=== PATIENT | female | born 2000 | race American Indian/Alaskan Native ===

== ENCOUNTER 2020-02-25 11:23 | Outpatient (CLI) | payer MEDICAID ==
[2020-02-25 12:00] VITALS: BP 135/60
[2020-02-25 12:34] LABS: Bacteria,Urine 1+ /HPF (Negative); Bilirubin,Urine NEG (Negative); Blood,Urine NEG (Negative); Color,Urine Yellow (Yellow); Mucus,Urine FEW /HPF; Protein,Urine <15 mg/dL mg/dL (Negative); Urobilinogen,Urine < 2.0 mg/dL (<2.0)
[2020-02-25] MEDS ORDERED: LACTATED RINGERS 1,000 ML IV SCH (13:00)
[2020-02-25] MEDS ORDERED: ACETAMINOPHEN 500 MG TAB PO ONE (13:25)
== END 2020-02-25 14:10 | disposition home or self-care (01) ==
LOC: TRG 11:23 → APU 11:27 → TRG 14:10
PROVIDERS: ATTEND Obstetrics & Gynecology
DX: O26.893 Other specified pregnancy related conditions, third trimester (principal); R10.9 Unspecified abdominal pain; O47.03 False labor before 37 completed weeks of gestation, third trimester; Z3A.31 31 weeks gestation of pregnancy; Z87.891 Personal history of nicotine dependence
CPT/HCPCS: 59025; 81001; 96360; 96361; J7120

== ENCOUNTER 2020-03-13 03:53 | Emergency (ER) | payer MEDICAID ==
[2020-03-13 05:50] LABS: Basophils % (Auto) 0.4 % (0.0-1.8); Eosinophils # (Auto) 0.2 K/mm3 (0.0-0.4); Eosinophils % (Auto) 2.2 % (0.0-4.3); Hematocrit 33.6 % (30.3-42.9); Hemoglobin 11.1 gm/dl (10.1-14.3); Lymphocytes # (Auto) 2.1 K/mm3 (1.2-5.4); Lymphocytes % (Auto) 24.6 % (13.4-35.0); Mean Corpuscular HGB Conc 33 % (30-34); Mean Corpuscular Volume 88 fl (79-97); Monocytes # (Auto) 0.7 K/mm3 (0.0-0.8); Monocytes % (Auto) 8.8 % (0.0-7.3); Platelet Count 225 K/mm3 (140-440); Red Blood Count 3.82 M/mm3 (3.65-5.03); Red Cell Distribution Width 14.4 % (13.2-15.2)
[2020-03-13 06:06] LABS: Blood Urea Nitrogen 5 mg/dL (7-17); Hemolysis Index 0
[2020-03-13 06:08] LABS: BUN/Creatinine Ratio 8
[2020-03-13] MEDS ORDERED: ALBUTEROL 2.5 MG/3 ML NEBU IH ONE (06:12)
[2020-03-13] MEDS ORDERED: ACETAMINOPHEN 325 MG TAB PO ONE (06:12)
--- NOTE | 2020-03-13 06:16 | Emergency Department Report ---
ED Chest Pain HPI - General Chief Complaint: Chest Pain Stated Complaint: DIFF BREATHING/CHEST PAIN Time Seen by Provider: 03/13/20 06:03 Source: patient Mode of arrival: Ambulatory Limitations: No Limitations - History of Present Illness Initial Comments: This is a 19-year-old -[place] female who presents to the emergency department from home with a complaint of a 5-day history of some midsternal chest discomfort and shortness of breath. It is associated with an occasional dry cough. She denies any fever, back pain, nausea, vomiting, lower extremity edema. The patient also felt that she had some acid reflux so she took some Tums with some relief of the GERD, but this feels different than the chest discomfort. The chest discomfort is described as a pressure sensation. Usually her symptoms worsen when she is laying down and trying to go to sleep, but she currently says that it is improved while in the emergency department. Currently her chest discomfort is a 4 out of 10 in intensity. No known alleviating factors. Patient is currently 34 weeks and was cleared by L&D prior to arrival to the emergency department. She is followed by [facility]. She denies any abdominal pain, vaginal bleeding, pelvic pain. She is a former smoker but has not been smoking during this . She denies any family history of early ID or cardiac disease. No recent travel or sick contacts at home. Severity scale (0 -10): 5 - Related Data Previous Rx's Medication Instructions Recorded Last Taken Type Nitrofurantoin Pinal/M-Cryst 100 mg PO Q12HR #14 capsule 02/25/20 Unknown Rx [Macrobid CAP] Allergies Allergy/AdvReac Type Severity Reaction Status Date / Time No Known Allergies Allergy Verified 02/25/20 11:59 Heart Score - HEART Score History: Slightly suspicious EKG: Non-specific Age: < 45 Risk factors: No known risk factors Troponin: < normal limit HEART Score: 1 - Critical Actions Critical Actions: 0-3 pts:0.9-1.7%risk of adverse cardiac event.Candidate for discharge ED Review of Systems ROS: Stated complaint: DIFF BREATHING/CHEST PAIN Other details as noted in HPI Comment: All other systems reviewed and negative Constitutional: denies: chills, fever Eyes: denies: eye pain, vision change ENT: denies: ear pain, throat pain Respiratory: cough, shortness of breath Cardiovascular: chest pain. denies: palpitations, edema Gastrointestinal: denies: abdominal pain, vomiting Genitourinary: denies: dysuria, discharge Musculoskeletal: denies: back pain, arthralgia Skin: denies: rash, lesions Neurological: denies: headache, weakness ED Past Medical Hx - Past Medical History Previous Medical History?: Yes Hx Hypertension: No Hx Diabetes: No Hx Deep Vein Thrombosis: No Hx Renal Disease: No Hx Sickle Cell Disease: No Hx Seizures: No Hx Asthma: Yes (last attack as a child) Hx HIV: No - Surgical History Past Surgical History?: No - Social History Smoking Status: Never Smoker Substance Use Type: None - Medications Home Medications: Home Medications Medication Instructions Recorded Confirmed Last Taken Type Nitrofurantoin Pinal/M-Cryst 100 mg PO Q12HR #14 capsule 02/25/20 Unknown Rx [Macrobid CAP] ED Physical Exam - General Limitations: No Limitations - Other Other exam information: GENERAL: The patient is well-developed well-nourished. HENT: Normocephalic. Atraumatic. Patient has moist mucous membranes. EYES: Extraocular motions are intact. NECK: Supple. Trachea is midline. CHEST/LUNGS: Mild expiratory wheezing bilaterally. No cough heard during examination. No tachypnea or accessory muscle use. There is no respiratory distress noted. HEART/CARDIOVASCULAR: Regular. There is no tachycardia. There is no murmur. ABDOMEN: Abdomen is soft, nontender. Patient has normal bowel sounds. SKIN: Skin is warm and dry. NEURO: The patient is awake, alert, and oriented. The patient is cooperative. The patient has no focal neurologic deficits. Normal speech. MUSCULOSKELETAL: There is no tenderness or deformity. ED Course Vital Signs 03/13/20 03/13/20 03/13/20 04:07 05:55 05:58 Temperature 98.1 F 98.4 F Pulse Rate 84 70 Respiratory 22 20 20 Rate Blood Pressure 140/71 Blood Pressure 139/58 [Right] O2 Sat by Pulse 96 97 97 Oximetry 03/13/20 03/13/20 06:43 09:17 Temperature Pulse Rate 66 Respiratory 20 16 Rate Blood Pressure Blood Pressure 149/69 [Right] O2 Sat by Pulse 100 Oximetry RABIA score - Rabia Score Age > 65: (0) No Aspirin use within the Past 7 Days: (0) No 3 or more CAD Risk Factors: (0) No 2 or more Angina events in past 24 hrs: (1) Yes Known CAD with more than 50% Stenosis: (0) No Elevated Cardiac Markers: (0) No ST Deviation Greater than 0.5mm: (0) No RABIA Score: 1 ED Medical Decision Making - Lab Data Result diagrams: 03/13/20 05:13 03/13/20 05:13 - EKG Data -: EKG Interpreted by Me EKG shows normal: sinus rhythm, axis, intervals, QRS complexes, ST-T waves (T wave inversions to the inferior, lateral and anterior leads) Rate: normal - EKG Data When compared to previous EKG there are: previous EKG unavailable Interpretation: other (Sinus rhythm, normal axis, normal intervals, T wave inversions to the anterior, inferior, and lateral leads. No ST elevation ID) - Radiology Data Radiology results: image reviewed interpreted by me: Chest x-ray does not show any acute process. There are no pleural effusions, obvious pneumonia and there is no pneumothorax. No significant cardiomegaly. - Medical Decision Making This patient presents to the emergency department with complaint of a 5-day history of some shortness of breath and chest tightness. At the time of my examination she denies any chest tightness or discomfort and the shortness of breath has greatly improved. EKG did not have any morphology consistent with ST elevation ID or any dysrhythmia. Chest x-ray did not show any pneumonia, pneumothorax, pleural effusions, or any other acute process. Patient's labs have been unremarkable including CBC, metabolic panel and negative troponins x2. Her vital signs have been reassuring throughout her ED course including being afebrile. She was given an albuterol breathing treatment with improvement. The patient is very low on the heart and RABIA score. Other than her , the patient does not have any other risk factors consistent with thromboembolic disease. She does not have any significant or sustained tachycardia, any hypoxia, and does not appear to have any respiratory or acute distress. Patient does not have any unilateral or bilateral lower extremity swelling. She will be discharged home to follow-up with primary care and TRAVELING SALES REPRESENTATIVE. She will return to the emergency department with any worsening of her symptoms or with any acute distress. Critical Care Time: No Critical care attestation.: If time is entered above; I have spent that time in minutes in the direct care of this critically ill patient, excluding procedure time. ED Disposition Clinical Impression: Chest tightness Qualifiers: Weeks of gestation: unspecified Qualified Code(s): Z34.90 - Encounter for nagy pervision of normal , unspecified, unspecified trimester Dyspnea Qualifiers: Dyspnea type: shortness of breath Qualified Code(s): R06.02 - Shortness of breath; R06.00 - Dyspnea, unspecified; R06.01 - Orthopnea Disposition: TO HOME OR SELFCARE Is pt being admited?: No Condition: Stable Instructions: (ED), Dyspnea (ED), Noncardiac Chest Pain (ED) Additional Instructions: Please follow-up with your primary care physician and TRAVELING SALES REPRESENTATIVE in the next few days without fail. Return to the emergency department immediately with any worsening of your symptoms, new symptoms not addressed during this emergency department visit, or with any acute distress. Referrals: PCP, Your [Other] - 2-3 Days [facility] [Provider Group] - 2-3 Days
--- NOTE | 2020-03-13 06:43 | XRay Report ---
CHEST 1 VIEW INDICATION: Chest Pain. COMPARISON: None. FINDINGS: Support devices: None. Heart: Normal. Lungs/Pleura: No acute pulmonary or pleural findings. IMPRESSION: 1. No acute findings. Signer Name: Robles Alvarez MD Signed: 03/13/2020 6:38 AM Workstation Name: [id number]
[2020-03-13 09:18] VITALS: BP 149/69
== END 2020-03-13 09:18 | disposition home or self-care (01) ==
LOC: ED 03:53
DX: O26.891 Other specified pregnancy related conditions, first trimester (principal); O99.511 Diseases of the respiratory system complicating pregnancy, first trimester; J45.909 Unspecified asthma, uncomplicated; Z3A.01 Less than 8 weeks gestation of pregnancy; Z79.899 Other long term (current) drug therapy
CPT/HCPCS: 36415; 59025; 71045; 80048; 84484; 85025; 93005

== ENCOUNTER 2020-03-22 18:49 | Inpatient (IN) | payer MEDICAID ==
[2020-03-22] MEDS ORDERED: LACTATED RINGERS 1,000 ML IV ONE (19:37)
[2020-03-22] MEDS ORDERED: AMPICILLIN/NS 2 GM/100 ML 2 GM/100 ML BAG IV ONE (19:47)
[2020-03-22] MEDS ORDERED: TERBUTALINE 1 MG/1 ML INJ SUB-Q PRN (19:47)
[2020-03-22] MEDS ORDERED: ONDANSETRON 4 MG/2 ML INJ IV PRN (19:47)
[2020-03-22] MEDS ORDERED: BUTORPHANOL 2 MG/1 ML INJ IV PRN (19:47)
[2020-03-22] MEDS ORDERED: LIDOCAINE (2%) 20 MG/1 ML VIAL 20 ML MDV INFILTRATI ONE (19:47)
[2020-03-22] MEDS ORDERED: MINERAL OIL 30 ML ORAL LIQD PO PRN (19:47)
[2020-03-22] MEDS ORDERED: ePHEDrine SULFATE 50 MG/1 ML INJ IV PRN (19:47)
[2020-03-22] MEDS ORDERED: BETAMET ACET/BETAMET NA PH 6 MG/ML INJ 5 ML MDV IM SCH (20:00)
[2020-03-22] MEDS ORDERED: OXYTOCIN DRIP 30 UNITS/500 ML BAG IV SCH (20:00)
[2020-03-22 20:42] LABS: Hematocrit 36.2 % (30.3-42.9); Hemoglobin 11.8 gm/dl (10.1-14.3); Mean Corpuscular HGB Conc 33 % (30-34); Mean Corpuscular Volume 89 fl (79-97); Platelet Count 284 K/mm3 (140-440); Red Blood Count 4.06 M/mm3 (3.65-5.03); Red Cell Distribution Width 14.7 % (13.2-15.2)
[2020-03-22] MEDS: LACTATED RINGERS 1,000 ML IV SCH (21:24)
[2020-03-22] MEDS: fentaNYL 100 MCG/2 ML INJ IV PRN (21:40)
[2020-03-23] MEDS ORDERED: AMPICILLIN/NS 1 GM/50 ML 1 GM/50 ML BAG IV SCH
[2020-03-23] MEDS: fentaNYL 100 MCG/2 ML INJ IV PRN (00:05)
--- NOTE | 2020-03-23 00:13 | History and Physical Report ---
History of Present Illness Date of examination: 03/23/20 Date of admission: 03/22/20 19:52 Chief complaint: SROM History of present illness: 19yo, G1 @ 35.3 wks gestation presents to [facility] with reports of "leaking fluids since 1730 on 03/22/20. Reports +FM. Denies any vaginal bleeding. She reports she is a pt at [facility] [employer], however no records are available at this time. Past History - Obstetrical History : 1 Medications and Allergies Allergies Allergy/AdvReac Type Severity Reaction Status Date / Time No Known Allergies Allergy Verified 02/25/20 11:59 Home Medications Medication Instructions Recorded Confirmed Last Taken Type Nitrofurantoin [place]/M-Cryst 100 mg PO Q12HR #14 capsule 02/25/20 Unknown Rx [Macrobid CAP] Active Meds: Active Medications Betamethasone Acet/Betameth SodPhos (Celestone Soluspan) 12 mg IM Q24H MARSHALL Stop: 03/23/20 20:01 Last Admin: 03/22/20 21:34 Dose: 12 mg Documented by: Butorphanol Tartrate (Stadol) 2 mg IV Q2H PRN PRN Reason: Pain , Severe (7-10) Ephedrine Sulfate (Ephedrine Sulfate) 10 mg IV Q2M PRN PRN Reason: Hypotension Fentanyl (Sublimaze) 100 mcg IV Q2H PRN PRN Reason: Pain,Severe (7-10) LABOR PAIN Last Admin: 03/23/20 00:05 Dose: 100 mcg Documented by: Lactated Ringer's (Lactated Ringers) 1,000 mls @ 125 mls/hr IV DIRECT MARSHALL Last Admin: 03/22/20 21:24 Dose: 125 mls/hr Documented by: Oxytocin/Sodium Chloride (Pitocin/Ns 30 Unit/500ml) 30 units in 500 mls @ 40 mls/hr IV TITR MARSHALL; Protocol Ampicillin Sodium (Ampicillin/Ns 1 Gm/50 Ml) 1 gm in 50 mls @ 100 mls/hr IV Q4HR MARSHALL; Protocol Mineral Oil (Mineral Oil) 30 ml PO QHS PRN PRN Reason: Constipation Ondansetron HCl (Zofran) 4 mg IV Q8H PRN PRN Reason: Nausea And Vomiting Terbutaline Sulfate (Brethine) 0.25 mg SUB-Q ONCE PRN PRN Reason: Hyperstimulation/Hypertonicity Review of Systems All systems: negative Genitourinary: leakage of fluid ("clear fluids") - Vital Signs Vital signs: Vital Signs Temp Pulse Resp BP Pulse Ox 99 F 79 18 146/65 100 03/22/20 19:14 03/22/20 19:14 03/22/20 19:14 03/22/20 19:14 03/22/20 19:14 Temp Pulse Resp BP Pulse Ox 99.0 F 64 22 134/63 100 03/22/20 21:30 03/22/20 23:41 03/23/20 00:05 03/22/20 23:41 03/22/20 20:25 - Physical Exam Breasts: Positive: normal Cardiovascular: Normal S1 Abdomen: Positive: other (gravid) Vagina: Positive: other (clear fluids noted) Uterus: Positive: enlarged (S=D) - Obstetrical FHR: category 1 Cervical Dilatation: 1 (per RN) Cervical Effacement Percentage: 90 station: 0 Uterine Contraction Frequency (min): 2-8 Uterine Contraction Pattern: Irregular Uterine Tone Measurement Phase: Resting Uterine Contraction Intensity: Mild Results Result Diagrams: 03/22/20 20:20 Abnormal lab results 03/22/20 Range/Units 20:20 WBC 12.4 H (4.5-11.0) K/mm3 All other labs normal. Assessment and Plan - Patient Problems (1) premature rupture of membranes (PPROM) with unknown onset of labor Current Visit: Yes Status: Acute Plan to address problem: Admit to L & D Betamethasone IM x 2 doses Pain meds as desired per orders Expectant labor management Anticipate (2) GBS screening not performed Current Visit: Yes Status: Acute Plan to address problem: Initiate GBS protocol (3) Maternal obesity syndrome in third trimester Current Visit: Yes Status: Acute
--- NOTE | 2020-03-23 02:50 | Anesthesia Consultation ---
Anesthesia Consult and Med Hx Date of service: 03/23/20 - Airway Anesthetic Teeth Evaluation: Good ROM Head & Neck: Adequate Mental/Hyoid Distance: Adequate Mallampati Class: Class II Intubation Access Assessment: Probably Good - Pulmonary Exam CTA: Yes - Cardiac Exam Cardiac Exam: RRR - Pre-Operative Health Status ASA Pre-Surgery Classification: ASA3 Proposed Anesthetic Plan: Epidural - Pulmonary Hx Asthma: Yes (last attack as a child) - Cardiovascular System Hx Hypertension: No - Central Nervous System Hx Seizures: No Hx Psychiatric Problems: No - Endocrine Hx Renal Disease: No Hx Hypothyroidism: No Hx Hyperthyroidism: No - Hematic Hx Anemia: No Hx Sickle Cell Disease: No - Other Systems Hx Alcohol Use: No Hx Obesity: Yes
[2020-03-23] MEDS ORDERED: NALOXONE 2 MG/2 ML INJ IV PRN (02:51)
--- NOTE | 2020-03-23 02:51 | Progress Note ---
Labor Epidural - Labor Epidural Start Time: 02:30 Stop Time: 02:50 Performed by:: VICTORIA BERGMAN Procedure: Patient is requesting epidural for labor pain. H&P, and labs reviewed. Procedure explained, questions answered, consent obtained. Patient in sitting position with blood pressure cuff and pulse ox on and working. Timeout performed immediately before start of procedure. Sterile betadine prep/drape. 3 mL 1% lidocaine skin wheal at L[3]-L[4]. 18-gauge Touhy epidural needle advanced to [id number] with saline at 10 cm. 27-gauge spinal needle advanced until clear, free-flowing CSF. Intrathecal dexmedetomidine [5] mcg administered and needle removed. Epidural catheter advanced to 15 cm, negative aspiration for blood and csf, negative test dose 3 ml 1.5% lidocaine with epinephrine. Sterile steri-strips and tegaderm applied, followed by tape reinforcement. Patient tolerated procedure well. Amanda SRNA
[2020-03-23] MEDS ORDERED: fentaNYL-BUPIV 2 MCG/ML-0.125% 200 MCG/100 ML BAG EPIDURAL SCH (03:00)
[2020-03-23] MEDS: ePHEDrine SULFATE 50 MG/1 ML INJ IV PRN ×2 (03:09→03:24)
[2020-03-23] MEDS ORDERED: BICITRA ORAL LIQD 30ML PO ONE (04:48)
[2020-03-23] MEDS ORDERED: METOCLOPRAMIDE 10 MG/2 ML INJ IV ONE (04:48)
[2020-03-23] MEDS ORDERED: FAMOTIDINE 20 MG/2 ML INJ IV ONE ×2 (04:48→04:53)
[2020-03-23] MEDS ORDERED: BICITRA ORAL LIQD 30ML ONE (04:52)
[2020-03-23] MEDS ORDERED: ceFAZolin/Water 2 GM/20 ML 2 GM/20 ML SYRINGE IV ONE (04:53)
[2020-03-23] MEDS ORDERED: METOCLOPRAMIDE 10 MG/2 ML INJ ONE (04:53)
[2020-03-23] MEDS ORDERED: OXYTOCIN DRIP 30 UNITS/500 ML BAG IV SCH ×2 (05:00→07:00)
[2020-03-23] MEDS ORDERED: LACTATED RINGERS 1,000 ML IV SCH (05:00)
--- NOTE | 2020-03-23 05:20 | Event Note ---
Date: 03/23/20 Called for FHT. Baseline is in the 90s with occasional decels going even lower. Good LTV. In light of the nonreassuring heart tracing, patient consented for primary low transverse . Patient fully consented for the surgery. Risks, benefits, and alternatives were all discussed with the patient including risk of bleeding, infection, and potential for injury. Patient understands and accepts these risks. Patient agrees to proceed with surgery. All questions were answered.
[2020-03-23] MEDS ORDERED: NALOXONE 0.4 MG/1 ML INJ IV PRN (06:16)
[2020-03-23] MEDS ORDERED: WITCH HAZEL/ GLYCERIN PAD TP PRN (06:16)
[2020-03-23] MEDS ORDERED: LANOLIN/ZINC/DIMETHICONE (LANSINOH) 7 GM TP PRN (06:16)
--- NOTE | 2020-03-23 06:16 | Procedure Note ---
OB Delivery Note - Delivery Date of Delivery: 03/23/20 Surgeon: ANGELICA BOWERS Estimated blood loss: other (700cc) - Section Preop diagnosis: nonreassuring FHR tracing Postop diagnosis: same section procedure: section, primary low transverse Disposition: PACU Complications: none Narrative: Indication:19 yo at 35 weeks and 3 days is for primary for nonreassuring heart tracing Findings: Normal uterus, tubes and ovaries. Clear fluid. Tight nuchal cord x 2. Procedure: Patient taken to the operating room and prepped and draped in the usual fashion. Pfannenstiel skin incision was made and carried down to the underlying fascia. Fascia was incised and the incision was extended bilaterally. Rectus fascia dissected off the rectus muscle both superiorly and inferiorly. Peritoneum identified tented up and entered. Peritoneal incision extended superiorly and inferiorly with good visualization of the bladder. Bladder blade was placed. Uterine incision was made and the incision was extended bilaterally. The baby was delivered from in the typical vertex fashion. Baby bulb suctioned at the incision site and again after delivery. Cord was clamped and cut and handed off to waiting team. The placenta was delivered spontaneously. The uterus was exteriorized and cleared of all clots and debris. Uterine incision closed with 0 Vicryl in a running locked fashion followed by a second imbricating layer of 0 Vicryl. Good hemostasis was noted. Her urine was clear. Uterus tubes and ovaries were returned to the abdominal cavity. Gutters were cleared of all clots and debris and the pelvis was well irrigated. Good hemostasis noted. Interceed placed over the uterine incision and over the lower uterine segment in the midline. Attention was turned to the rectus fascia which was reapproximated with 0 Vicryl in a running fashion. Subcutaneous tissue was irrigated and reapproximated with 2-0 Vicryl in a running fashion. Skin was closed with 4-0 Vicryl in a subcuticular fashion followed by Dermabond. The procedure was concluded at this point and the patient tolerated the procedure well. All instrument and lap counts were correct. - A at 1 minute: 8 at 5 minutes: 9 Infant Gender: Female
[2020-03-23] MEDS ORDERED: SIMETHICONE 80 MG CHEW TAB PO PRN (06:19)
[2020-03-23] MEDS ORDERED: ONDANSETRON 4 MG/2 ML INJ IV PRN (06:19)
[2020-03-23] MEDS ORDERED: SENNOSIDES 8.6 MG TAB PO PRN (06:19)
[2020-03-23] MEDS ORDERED: MAGNESIUM HYDROXIDE (MOM) ORAL LIQD UDC PO PRN (06:19)
[2020-03-23] MEDS ORDERED: SODIUM BICARB 8.4% 50 MEQ/50 ML VIAL IV ONE (06:58)
[2020-03-23] MEDS ORDERED: LIDOCAINE 2%/EPINEPHRINE 1:200,000 VIAL (20 ML) INFILTRATI ONE (06:58)
[2020-03-23] MEDS ORDERED: dexAMETHasone 20 MG/5 ML VIAL ONE (06:58)
[2020-03-23] MEDS ORDERED: BUPIVACAINE/PF (0.5%) 5 MG/1 ML 30 ML VIAL INFILTRATI ONE (06:58)
--- NOTE | 2020-03-23 07:03 | Post Anesthesia Evaluation ---
- Post Anesthesia Evaluation Patient Participated: Yes Airway Patent: Yes Stable Respiratory Function: Yes Nausea/Vomiting: No Temp > 96.8F: Yes Pain Manageable: Yes Adequeate Hydration: Yes Anesthesia Complications: No Block Receding Appropriately: Yes
--- NOTE | 2020-03-23 07:03 | Progress Note ---
Regional Anesthesia Block - Regional Anesthesia Block Start Time: 06:45 Stop Time: 06:50 Performed By:: VICTORIA BERGMAN Procedure: U/S guided bilateral tap block performed for post-operative pain requested by Dr. Reeves. H&P & labs reviewed. Procedure explained, questions answered, consent obtained. Patient in the supine position with ekg, blood pressure cuff and pulse ox on and working in PACU. Timeout performed immediately before start of procedure. Probe placed in the mid-axillary line and the external oblique, internal oblique, and transverse abdominus muscles identified. Skin was cleansed with 0.5% Chlorahexadine and allowed to dry. A 4" 20 G Akers echogenic needle was advanced in plane until the tip was in the fascial plane between the internal oblique and the transverse abdominus. After negative aspiration 35 ml/side of [30 ml 0.5% Bupivacaine], [50 mcg dexmedetomidine], [8 mg dexamethasone], and [40 ml sterile saline] was injected in 5 ml increments with negative aspiration in between. Patient tolerated procedure well. Amanda ESCOBAR
[2020-03-23] MEDS: KETOROLAC 30 MG/1 ML INJ IV PRN ×2 (12:58→18:56)
[2020-03-23] MEDS: oxyCODONE /ACETAMINOPHEN 5-325MG TAB PO PRN ×2 (16:23→22:47)
[2020-03-23] MEDS: LACTATED RINGERS 1,000 ML IV SCH (16:52)
[2020-03-24] MEDS: KETOROLAC 30 MG/1 ML INJ IV PRN (03:39)
[2020-03-24 06:03] LABS: Hematocrit 31.8 % (30.3-42.9); Hemoglobin 10.3 gm/dl (10.1-14.3)
[2020-03-24] MEDS: oxyCODONE /ACETAMINOPHEN 5-325MG TAB PO PRN ×2 (08:17→17:51)
--- NOTE | 2020-03-24 12:39 | Progress Note ---
Assessment and Plan POD # 1 A: S/P Primary LTCS p: Continue monitoring Pain med prn - Patient Problems (1) Status post primary low transverse section Current Visit: Yes Status: Acute Subjective - Subjective Date of service: 03/24/20 Principal diagnosis: S/P Primary c/s Patient reports: appetite normal, voiding normally, pain well controlled, amb ulating normally, other (passing gas) : doing well, in NICU, bottle feeding Objective - Vital Signs Latest vital signs: Vital Signs Temp Pulse Resp BP BP Pulse Ox 03/24/20 08:17 20 03/24/20 08:06 97.9 F 68 20 115/53 99 03/24/20 00:33 98.0 F 67 20 104/45 99 03/23/20 16:07 98.0 F 94 H 18 130/67 98 Intake and Output 03/23/20 03/24/20 03/24/20 22:59 06:59 14:59 Intake Total 240 480 480 Output Total 1225 900 Balance -985 -420 480 Intake: Oral 240 480 480 Output: Urine 1225 900 Indwelling Catheter 825 Void 400 900 Other: Total, Intake Amount 240 240 120 Total, Output Amount 400 500 # Voids Indwelling Catheter 1 Void 1 1 1 - Exam Breasts: Present: normal Abdomen: Present: normal appearance, soft, normal bowel sounds Vulva: both: normal Uterus: Present: normal, firm, fundal height below umbilicus, other (scant rubra lochia) Extremities: Present: normal Incision: Present: normal, dry, intact, dressed
[2020-03-24] MEDS: IBUPROFEN 800 MG TAB PO PRN (16:24)
[2020-03-25] MEDS: IBUPROFEN 800 MG TAB PO PRN ×2 (05:56→16:27)
[2020-03-25] MEDS: oxyCODONE /ACETAMINOPHEN 5-325MG TAB PO PRN ×2 (10:44→21:17)
--- NOTE | 2020-03-25 12:04 | Progress Note ---
Assessment and Plan - Patient Problems (1) Status post primary low transverse section Current Visit: Yes Status: Acute Plan to address problem: Continue routine PP orders Anticipate d/c home tomorrow F/U at office in 1 week (2) Anemia Current Visit: Yes Status: Acute Qualifiers: Anemia type: other cause Other causes of anemia: acute posthemorrhagic Qualified Code(s): D62 - Acute posthemorrhagic anemia Plan to address problem: Asymptomatic Increase iron rich foods into diet Subjective - Subjective Date of service: 03/25/20 Principal diagnosis: S/P Primary c/s; POD#2 Interval history: 19yo, G1 @ 35.3 wks gestation presents to [facility] with reports of "leaking fluids since 1730 on 03/22/20. Reports +FM. Denies any vaginal bleeding. She reports she is a pt at [facility] [employer], however no records are available at this time. Patient reports: appetite normal, voiding normally, pain well controlled, flatus, bowel movement, ambulating normally : in NICU Objective - Vital Signs Latest vital signs: Vital Signs Temp Pulse Resp BP BP Pulse Ox 03/25/20 10:44 20 03/25/20 08:20 97.8 F 60 18 118/67 100 03/25/20 06:50 18 03/25/20 05:56 18 03/24/20 23:57 98.2 F 55 L 20 102/59 99 03/24/20 17:51 20 03/24/20 16:24 20 03/24/20 15:38 99.4 F 60 16 127/68 98 Intake and Output 03/24/20 03/25/20 03/25/20 23:59 07:59 15:59 Intake Total 240 480 240 Balance 240 480 240 Intake: Oral 240 240 Intake, Free Water 240 240 Other: Total, Intake Amount 240 240 # Voids Void 1 1 - Exam Breasts: Present: normal Cardiovascular: Present: Regular rate Lungs: Present: Normal air movement Abdomen: Present: soft, tenderness Uterus: Present: firm, fundal height below umbilicus (U-2) Extremities: Present: normal Deep Tendon Reflex Grade: Normal +2 Incision: Present: dry, intact (no drainage or bleeding noted)
--- NOTE | 2020-03-25 12:06 | Discharge Summary ---
Providers - Providers Date of Admission: 03/22/20 19:52 Date of discharge: 03/26/20 Attending physician: ANGELICA BOWERS Primary care physician: ANGELICA BOWERS Hospitalization Reason for admission: rupture of membranes Delivery: Procedure: primary low transverse Episiotomy: none Laceration: none Incision: dry, intact Other procedures: none complications: none Discharge diagnosis: other (anemia), delivery [place] baby: male Hospital course: See admission H & P; OB operative note and PP progress notes Condition at discharge: Stable Disposition: DC-01 TO HOME OR SELFCARE - Discharge Diagnoses (1) Status post primary low transverse section Status: Acute (2) Anemia Status: Acute Qualifiers: Anemia type: other cause Other causes of anemia: acute posthemorrhagic Qualified Code(s): D62 - Acute posthemorrhagic anemia Plan - Discharge Medications Prescriptions: Ibuprofen [Motrin 800 MG tab] 800 mg PO Q8H PRN #30 tablet PRN Reason: Pain, Mild (1-3) oxyCODONE /ACETAMINOPHEN [Percocet 5/325 mg] 1 tab PO Q6H PRN #30 tablet PRN Reason: Pain, Moderate (4-6) - Provider Discharge Summary Activity: routine, no sex for 6 weeks, no heavy lifting 4 weeks, no strenuous exercise Diet: other (Iron rich diet) Instructions: other Additional instructions: [] Smoking cessation referral if applicable(refer to patient education folder for contact #) [] Refer to [facility]'s [facility] Booklet Call your doctor immediately for: * Fever > 100.5 * Heavy vaginal bleeding ( >1 pad per hour) * Severe persistent headache * Shortness of breath * Reddened, hot, painful area to leg or breast * Drainage or odor from incision. * Keep incision clean and dry at all times and follow doctor's instructions regarding bathing/showering - Follow up plan Follow up: ANGELICA BOWERS MD [Primary Care Provider] - 14 Days Forms: Work/School Release Form
[2020-03-26] MEDS: oxyCODONE /ACETAMINOPHEN 5-325MG TAB PO PRN ×2 (08:38→16:20)
[2020-03-26 18:33] VITALS: BP 126/48
== END 2020-03-26 17:58 | disposition home or self-care (01) | DRG 765 ==
LOC: TRG 18:49 → APU 19:11 → LD 19:52 → TRG 19:52 → APU 03-23 05:48 → OB 03-23 08:21
PROVIDERS: ADMIT Obstetrics & Gynecology; ATTEND Obstetrics & Gynecology
PROC: 10D00Z1 Extraction of Products of Conception, Low, Open Approach (ICD-10-PCS; principal; 2020-03-23)
PROC: 3E0R3BZ Introduction of Anesthetic Agent into Spinal Canal, Percutaneous Approach (ICD-10-PCS; 2020-03-23)
PROC: 00HU33Z Insertion of Infusion Device into Spinal Canal, Percutaneous Approach (ICD-10-PCS; 2020-03-23)
DX: O42.913 Preterm premature rupture of membranes, unspecified as to length of time between rupture and onset of labor, third trimester (principal); O60.14X0 Preterm labor third trimester with preterm delivery third trimester, not applicable or unspecified; D62 Acute posthemorrhagic anemia; Z3A.35 35 weeks gestation of pregnancy; Z37.0 Single live birth; O99.213 Obesity complicating pregnancy, third trimester; Z20.828 Contact with and (suspected) exposure to other viral communicable diseases; E66.9 Obesity, unspecified; O76 Abnormality in fetal heart rate and rhythm complicating labor and delivery; O69.81X0 Labor and delivery complicated by cord around neck, without compression, not applicable or unspecified; O90.81 Anemia of the puerperium
CPT/HCPCS: 36415; 85014; 85018; 85027; 86592; 86850; 86900; 86901; G0378; C1765; J0290; J0702; J1100; J1885; J3010; J3490; J7120; U0003

== ENCOUNTER 2021-10-02 22:47 | Emergency (ER) | payer MEDICAID ==
[2021-10-03] MEDS ORDERED: ACETAMINOPHEN 500 MG TAB PO ONE (04:03)
[2021-10-03 04:57] LABS: Basophils # (Auto) 0.1 K/mm3 (0.0-0.1); Hematocrit 34.8 % (30.3-42.9); Lymphocytes % (Auto) 15.2 % (13.4-35.0); Mean Corpuscular HGB Conc 32 % (30-34); Mean Corpuscular Volume 86 fl (79-97); Monocytes # (Auto) 0.5 K/mm3 (0.0-0.8); Monocytes % (Auto) 3.8 % (0.0-7.3); Platelet Count 235 K/mm3 (140-440); Red Blood Count 4.03 M/mm3 (3.65-5.03); Red Cell Distribution Width 13.7 % (13.2-15.2)
[2021-10-03 05:12] LABS: Alanine Aminotransferase 7 units/L (7-56); Albumin 3.8 g/dL (3.9-5); Blood Urea Nitrogen 6 mg/dL (7-17); Calcium 9.7 mg/dL (8.4-10.2); Hemolysis Index 0
[2021-10-03 05:30] LABS: BUN/Creatinine Ratio 10
[2021-10-03 05:41] LABS: Bilirubin,Urine NEG (Negative); Blood,Urine NEG (Negative); Color,Urine Yellow (Yellow); Mucus,Urine 1+ /HPF
--- NOTE | 2021-10-03 07:05 | Emergency Department Report ---
<JATINDER FISHER - Last Filed: 10/03/21 07:01> ED Abdominal Pain HPI - General Chief Complaint: Abdominal Pain Stated Complaint: ISSUES Source: EMS Mode of arrival: Stretcher Limitations: No Limitations - History of Present Illness Initial Comments: Patient is a A0 21-year-old -[place] female who is approximately 6 to 7 weeks gestation presents to the ED with complaint of acute onset persistent diffuse low abdominal pain for the last 3 days. Patient states the pain has been persistent and constant and worsened in the last 12 hours. Patient denies vaginal bleeding, vaginal discharge, dysuria, urinary frequency and urgency, chest pain, shortness of breath, low back pain, headache, fever, chills, diarrhea, nausea and vomiting MD Complaint: abdominal pain (Diffuse lower abdominal pain), other (Patient approximately 7 weeks gestation) -: Sudden, days(s) (3) Location: suprapubic Radiation: none Migration to: no migration Severity: severe Severity scale (0 -10): 7 Quality: cramping, sharp Consistency: intermittent Improves With: nothing Worsens With: nothing Associated Symptoms: denies other symptoms. denies: nausea, vomiting, diarrhea, fever, chills, constipation, dysuria, hematemesis, hematochezia, melena, hematuria, syncope - Related Data Previous Rx's Medication Instructions Recorded Last Taken Type Nitrofurantoin [place]/M-Cryst 100 mg PO Q12HR #14 capsule 02/25/20 Unknown Rx [Macrobid CAP] Ibuprofen [Motrin 800 MG tab] 800 mg PO Q8H PRN #30 tablet 03/23/20 Unknown Rx oxyCODONE /ACETAMINOPHEN [Percocet 1 tab PO Q6H PRN #30 tablet 03/23/20 Unknown Rx 5/325 mg] Ibuprofen [Motrin] 800 mg PO Q8HR PRN #30 tablet 05/29/21 Unknown Rx traMADoL [Ultram] 50 mg PO Q6HR PRN #12 tablet 05/29/21 Unknown Rx Acetaminophen [Tylenol] 500 mg PO Q6HR PRN #40 tablet 10/03/21 Unknown Rx cephALEXin [Keflex] 500 mg PO Q8HR #30 cap 10/03/21 Unknown Rx Allergies Allergy/AdvReac Type Severity Reaction Status Date / Time No Known Allergies Allergy Verified 05/28/21 21:45 ED Review of Systems Constitutional: denies: chills, fever Eyes: denies: eye pain, eye discharge, vision change ENT: denies: ear pain, throat pain Respiratory: denies: cough, shortness of breath, wheezing Cardiovascular: denies: chest pain, palpitations Endocrine: no symptoms reported Gastrointestinal: abdominal pain (Diffuse low abdominal pain). denies: nausea, vomiting, diarrhea Genitourinary: denies: urgency, dysuria, discharge Musculoskeletal: denies: back pain, joint swelling, arthralgia Skin: denies: rash, lesions Neurological: denies: headache, weakness, paresthesias Psychiatric: denies: anxiety, depression Hematological/Lymphatic: denies: easy bleeding, easy bruising ED Past Medical Hx - Past Medical History Previous Medical History?: No Hx Hypertension: No Hx Diabetes: No Hx Deep Vein Thrombosis: No Hx Renal Disease: No Hx Sickle Cell Disease: No Hx Seizures: No Hx Asthma: Yes (last attack as a child) Hx HIV: No - Surgical History Additional Surgical History: - Social History Smoking Status: Unknown if ever smoked Substance Use Type: None - Medications Home Medications: Home Medications Medication Instructions Recorded Confirmed Last Taken Type Nitrofurantoin [place]/M-Cryst 100 mg PO Q12HR #14 capsule 02/25/20 03/25/20 Unknown Rx [Macrobid CAP] Ibuprofen [Motrin 800 MG tab] 800 mg PO Q8H PRN #30 tablet 03/23/20 Unknown Rx oxyCODONE /ACETAMINOPHEN [Percocet 1 tab PO Q6H PRN #30 tablet 03/23/20 Unknown Rx 5/325 mg] Ibuprofen [Motrin] 800 mg PO Q8HR PRN #30 tablet 05/29/21 Unknown Rx traMADoL [Ultram] 50 mg PO Q6HR PRN #12 tablet 05/29/21 Unknown Rx Acetaminophen [Tylenol] 500 mg PO Q6HR PRN #40 tablet 10/03/21 Unknown Rx cephALEXin [Keflex] 500 mg PO Q8HR #30 cap 10/03/21 Unknown Rx ED Physical Exam - General Limitations: No Limitations General appearance: alert, in no apparent distress - Head Head exam: Present: atraumatic, normocephalic, normal inspection - Eye Eye exam: Present: normal appearance, PERRL, EOMI Pupils: Present: normal accommodation - ENT ENT exam: Present: normal exam, normal orophraynx, mucous membranes moist, TM's normal bilaterally, normal external ear exam - Neck Neck exam: Present: normal inspection, full ROM. Absent: tenderness - Respiratory Respiratory exam: Present: normal lung sounds bilaterally. Absent: respiratory distress, wheezes, rales, rhonchi, chest wall tenderness, accessory muscle use - Cardiovascular Cardiovascular Exam: Present: regular rate, normal rhythm, normal heart sounds. Absent: systolic murmur, diastolic murmur, rubs, gallop - GI/Abdominal GI/Abdominal exam: Present: soft, tenderness (Palpable mild suprapubic tenderness), normal bowel sounds. Absent: guarding, hyperactive bowel sounds, organomegaly, mass - Extremities Exam Extremities exam: Present: normal inspection, full ROM, normal capillary refill. Absent: tenderness - Back Exam Back exam: Present: normal inspection, full ROM. Absent: tenderness, CVA tenderness (R), CVA tenderness (L), muscle spasm, paraspinal tenderness, vertebral tenderness - Neurological Exam Neurological exam: Present: alert, oriented X3, CN II-XII intact, normal gait, reflexes normal - Psychiatric Psychiatric exam: Present: normal affect, normal mood - Skin Skin exam: Present: warm, dry, intact, normal color. Absent: rash ED Medical Decision Making - Lab Data Result diagrams: 10/03/21 04:20 10/03/21 04:20 - Radiology Data Radiology results: report reviewed, image reviewed - Medical Decision Making This is a A0 21-year-old -[place] female who is approximately 6 to 7 weeks gestation presents to the ED with complaint of acute onset persistent diffuse low abdominal pain for the last 3 days. Patient states the pain has been persistent and constant and worsened in the last 12 hours. In the ED, patient is alert and oriented x3 and is not in any distress. Patient was treated for pain with Tylenol. Lab test results were reviewed and showed hCG quant of 8234, leukocytosis of 13,000 and urinalysis showed significant urinary tract infection. Transvaginal ultrasound is pending at this time. Patient care was transferred to Ms. Naa Gates NP at shift change. She shall review all imaging reports and disposition the patient accordingly. - Differential Diagnosis UTI; ectopic ; ED Disposition Clinical Impression: Acute urinary tract infection, Disposition: HOME / SELF CARE / HOMELESS Is pt being admited?: No Does the pt Need Aspirin: No Condition: Stable Instructions: Abdominal Pain During , [id number], Urinary Tract Infection, Adult, [id number], Abdominal Pain (ED) Additional Instructions: Pelvic rest Tylenol for pain Antibiotic as ordered today Drink a lot of water Diet and activity as tolerated Follow-up with OIL OPERATOR in 48 hours for recheck Take this paperwork with you Prescriptions: Acetaminophen [Tylenol] 500 mg PO Q6HR PRN #40 tablet PRN Reason: Pain , Severe (7-10) cephALEXin [Keflex] 500 mg PO Q8HR #30 cap Referrals: NEGRITA KYLE MD [Staff Physician] - 3-5 Days HAWA PADILLA MD [Staff Physician] - 3-5 Days Time of Disposition: 07:07 Print Language: SPANISH <DWAIN GARCIA - Last Filed: 10/03/21 08:28> ED Abdominal Pain HPI - General PUI?: No ED Review of Systems ROS: Stated complaint: ISSUES Other details as noted in HPI Comment: All other systems reviewed and negative ED Past Medical Hx - Surgical History Past Surgical History?: Yes - Family History Family history: no significant ED Course Vital Signs 10/02/21 22:48 Temperature 98.7 F Pulse Rate 59 L Respiratory 18 Rate Blood Pressure 122/58 O2 Sat by Pulse 99 Oximetry ED Medical Decision Making - Lab Data Result diagrams: 10/03/21 04:20 10/03/21 04:20 - Radiology Data See report - Medical Decision Making Vital Signs 10/02/21 22:48 Temperature 98.7 F Pulse Rate 59 L Respiratory 18 Rate Blood Pressure 122/58 O2 Sat by Pulse 99 Oximetry Lab Results 10/03/21 10/03/21 10/03/21 Range/Units 04:20 04:20 04:20 WBC 13.0 H (4.5-11.0) K/mm3 RBC 4.03 (3.65-5.03) M/mm3 Hgb 11.0 (10.1-14.3) gm/dl Hct 34.8 (30.3-42.9) % MCV 86 (79-97) fl MCH 27 L (28-32) pg MCHC 32 (30-34) % RDW 13.7 (13.2-15.2) % Plt Count 235 (140-440) K/mm3 Lymph % (Auto) 15.2 (13.4-35.0) % Carbon % (Auto) 3.8 (0.0-7.3) % Eos % (Auto) 0.0 (0.0-4.3) % Baso % (Auto) 1.0 (0.0-1.8) % Lymph # (Auto) 2.0 (1.2-5.4) K/mm3 Carbon # (Auto) 0.5 (0.0-0.8) K/mm3 Eos # (Auto) 0.0 (0.0-0.4) K/mm3 Baso # (Auto) 0.1 (0.0-0.1) K/mm3 Seg Neutrophils % 80.0 H (40.0-70.0) % Seg Neutrophils # 10.4 H (1.8-7.7) K/mm3 Sodium 137 (137-145) mmol/L Potassium 4.2 (3.6-5.0) mmol/L Chloride 102.7 (98-107) mmol/L Carbon Dioxide 22 (22-30) mmol/L Anion Gap 17 mmol/L BUN 6 L (7-17) mg/dL Creatinine 0.6 (0.6-1.2) mg/dL Estimated GFR > 60 ml/min BUN/Creatinine Ratio 10 % Glucose 88 (65-100) mg/dL Calcium 9.7 (8.4-10.2) mg/dL Total Bilirubin 0.30 (0.1-1.2) mg/dL AST 11 (5-40) units/L ALT 7 (7-56) units/L Alkaline Phosphatase 58 (35-129) units/L Total Protein 6.4 (6.3-8.2) g/dL Albumin 3.8 L (3.9-5) g/dL Albumin/Globulin Ratio 1.5 % Lipase 16 (13-60) units/L HCG, Quant 8234 H (0-4) mIU/mL Urine Color (Yellow) Urine Turbidity (Clear) Urine pH (5.0-7.0) Ur Specific [place] (1.003-1.030) Urine Protein (Negative) mg/dL Urine Glucose (UA) (Negative) mg/dL Urine Ketones (Negative) mg/dL Urine Blood (Negative) Urine Nitrite (Negative) Urine Bilirubin (Negative) Urine Urobilinogen (<2.0) mg/dL Ur Leukocyte Esterase (Negative) Urine WBC (Auto) (0.0-6.0) /HPF Urine RBC (Auto) (0.0-6.0) /HPF U Epithel Cells (Auto) (0-13.0) /HPF Urine Mucus /HPF 10/03/21 Range/Units 05:11 WBC (4.5-11.0) K/mm3 RBC (3.65-5.03) M/mm3 Hgb (10.1-14.3) gm/dl Hct (30.3-42.9) % MCV (79-97) fl MCH (28-32) pg MCHC (30-34) % RDW (13.2-15.2) % Plt Count (140-440) K/mm3 Lymph % (Auto) (13.4-35.0) % Carbon % (Auto) (0.0-7.3) % Eos % (Auto) (0.0-4.3) % Baso % (Auto) (0.0-1.8) % Lymph # (Auto) (1.2-5.4) K/mm3 Carbon # (Auto) (0.0-0.8) K/mm3 Eos # (Auto) (0.0-0.4) K/mm3 Baso # (Auto) (0.0-0.1) K/mm3 Seg Neutrophils % (40.0-70.0) % Seg Neutrophils # (1.8-7.7) K/mm3 Sodium (137-145) mmol/L Potassium (3.6-5.0) mmol/L Chloride (98-107) mmol/L Carbon Dioxide (22-30) mmol/L Anion Gap mmol/L BUN (7-17) mg/dL Creatinine (0.6-1.2) mg/dL Estimated GFR ml/min BUN/Creatinine Ratio % Glucose (65-100) mg/dL Calcium (8.4-10.2) mg/dL Total Bilirubin (0.1-1.2) mg/dL AST (5-40) units/L ALT (7-56) units/L Alkaline Phosphatase (35-129) units/L Total Protein (6.3-8.2) g/dL Albumin (3.9-5) g/dL Albumin/Globulin Ratio % Lipase (13-60) units/L HCG, Quant (0-4) mIU/mL Urine Color Yellow (Yellow) Urine Turbidity Slightly-cloudy (Clear) Urine pH 6.0 (5.0-7.0) Ur Specific [place] 1.028 (1.003-1.030) Urine Protein 30 mg/dl (Negative) mg/dL Urine Glucose (UA) Neg (Negative) mg/dL Urine Ketones 20 (Negative) mg/dL Urine Blood Neg (Negative) Urine Nitrite Neg (Negative) Urine Bilirubin Neg (Negative) Urine Urobilinogen 4.0 (<2.0) mg/dL Ur Leukocyte Esterase Mod (Negative) Urine WBC (Auto) 32.0 H (0.0-6.0) /HPF Urine RBC (Auto) 7.0 (0.0-6.0) /HPF U Epithel Cells (Auto) 43.0 H (0-13.0) /HPF Urine Mucus 1+ /HPF Labs reviewed. Keflex given per overnight order. For UTI. Ultrasound noted Patient being discharged home with discharge plan of care including diet, medication, activity and follow-up. Patient verbalizes understanding of plan of care. On discharge patient taking p.o. without difficulty Critical care attestation.: If time is entered above; I have spent that time in minutes in the direct care of this critically ill patient, excluding procedure time.
[2021-10-03] MEDS ORDERED: cephALEXin 500 MG CAP PO ONE (07:10)
--- NOTE | 2021-10-03 08:23 | Ultrasound Report ---
ULTRASOUND OBSTETRIC COMPLETE ULTRASOUND OB TRANSVAGINAL INDICATION / CLINICAL INFORMATION: PELVIC PAIN. Clinical Gestational Age (GA) in weeks.days: Not given TECHNIQUE: Transabdominal and Transvaginal. COMPARISON: None available. FINDINGS: NUMBER: Single PRESENTATION: cephalic PLACENTA: Posterior, grade 1 and free of the os. No abruption. MATERNAL ADNEXA: No significant abnormality. AMNIOTIC FLUID VOLUME: Subjectively within normal limits AMNIOTIC FLUID INDEX (KING) in cm (if measured): Not measured ANATOMY: organs (including the bladder, stomach, kidneys, heart, umbilical cord, diaphragm, cord inserti on, and intracranial structures) are visualized and show no significant abnormality with the followin g exception(s): There is limited views of the spine due to position, no gross abnormality. MEASUREMENTS: - Biparietal Diameter = 4.8 cm = 20.3 weeks.days - Head Circumference = 18.2 cm = 20.4 weeks.days - Abdominal Circumference = 16.2 cm = 21.2 weeks.days - Femur Length = 3.3 cm = 20.2 weeks.days - Estimated Weight (in grams, if calculated): 378 +/- 56 - Heart Rate (beats per minute): 117 ADDITIONAL FINDINGS: The cervix measures 3.5 cm in length. There appears to be mild funneling near th e internal cervical measuring 0.8 cm in width. PERCENTILE ESTIMATED WEIGHT (if calculated): Not calculated AVERAGE ULTRASOUND AGE (AUA) in weeks.days = 20.5 IMPRESSION: 1. Single intrauterine with AUA of 20.5 weeks.days 2. No acute abnormality is appreciated. 3. The cervix measures 3.5 cm in length with minimal funneling at the internal cervical os. Signer Name: Sonido Thomas Jr, MD Signed: 10/03/2021 8:18 AM Workstation Name: [id number]
[2021-10-03 09:07] VITALS: BP 118/78
== END 2021-10-03 09:07 | disposition home or self-care (01) ==
LOC: ED 22:47
DX: O23.91 Unspecified genitourinary tract infection in pregnancy, first trimester (principal); Z3A.01 Less than 8 weeks gestation of pregnancy
CPT/HCPCS: 36415; 76805; 76817; 80053; 81001; 83690; 84702; 85025; 87086; 99284

== ENCOUNTER 2022-02-12 04:20 | Inpatient (IN) | payer MEDICAID ==
[2022-02-12] MEDS ORDERED: FAMOTIDINE 20 MG/2 ML INJ IV ONE ×2 (05:18→06:29)
[2022-02-12] MEDS ORDERED: METOCLOPRAMIDE 10 MG/2 ML INJ IV ONE ×2 (05:18→06:29)
[2022-02-12] MEDS ORDERED: BICITRA ORAL LIQD 30ML PO ONE ×2 (05:18→06:29)
[2022-02-12] MEDS ORDERED: LACTATED RINGERS 1,000 ML IV SCH (05:30)
[2022-02-12 05:39] LABS: Basophils % (Auto) 0.2 % (0.0-1.8); Eosinophils % (Auto) 0.5 % (0.0-4.3); Hematocrit 34.3 % (30.3-42.9); Hemoglobin 10.8 gm/dl (10.1-14.3); Lymphocytes # (Auto) 2.6 K/mm3 (1.2-5.4); Lymphocytes % (Auto) 32.5 % (13.4-35.0); Mean Corpuscular HGB Conc 32 % (30-34); Mean Corpuscular Volume 88 fl (79-97); Monocytes # (Auto) 0.7 K/mm3 (0.0-0.8); Monocytes % (Auto) 8.9 % (0.0-7.3); Platelet Count 205 K/mm3 (140-440); Red Blood Count 3.91 M/mm3 (3.65-5.03); Red Cell Distribution Width 14.3 % (13.2-15.2)
[2022-02-12] MEDS ORDERED: SODIUM CHLORIDE 0.9% 500 ML 500 ML IV ONE (05:45)
[2022-02-12] MEDS ORDERED: OXYTOCIN DRIP 30 UNITS/500 ML BAG IV SCH ×4 (06:00→10:00)
[2022-02-12] MEDS ORDERED: ceFAZolin/Water 2 GM/20 ML 2 GM/20 ML SYRINGE IV NR ×2 (06:00→07:00)
[2022-02-12] MEDS ORDERED: NalbUPHINE 10 MG/1 ML INJ IV PRN (06:29)
[2022-02-12] MEDS ORDERED: TERBUTALINE 1 MG/1 ML INJ SUB-Q PRN (06:29)
[2022-02-12] MEDS ORDERED: LIDOCAINE (2%) 20 MG/1 ML VIAL 20 ML MDV INFILTRATI ONE (06:29)
[2022-02-12] MEDS ORDERED: fentaNYL 100 MCG/2 ML INJ IV PRN (06:29)
[2022-02-12] MEDS ORDERED: ACETAMINOPHEN 325 MG TAB PO PRN ×2 (06:29→11:00)
[2022-02-12] MEDS ORDERED: ePHEDrine SULFATE 50 MG/1 ML INJ IV PRN (06:29)
[2022-02-12] MEDS ORDERED: LOPERAMIDE 2 MG CAP PO PRN (06:29)
[2022-02-12] MEDS ORDERED: MINERAL OIL 30 ML ORAL LIQD PO PRN (06:29)
[2022-02-12] MEDS ORDERED: miSOPROStol 200 MCG TAB PR PRN (06:29)
--- NOTE | 2022-02-12 06:46 | History and Physical Report ---
History of Present Illness Date of examination: 02/12/22 Date of admission: 02/12/22 Chief complaint: Contractions History of present illness: . 40+4wks. ABEL 02/08/22. Previous . Past History Past Surgical History: section - Obstetrical History Expected Date of Delivery: 02/08/22 Actual Gestation: 40 Week(s) 4 Day(s) : 2 Para: 1 Medications and Allergies Allergies Allergy/AdvReac Type Severity Reaction Status Date / Time No Known Allergies Allergy Verified 05/28/21 21:45 Home Medications Medication Instructions Recorded Confirmed Last Taken Type Nitrofurantoin [place]/M-Cryst 100 mg PO Q12HR #14 capsule 02/25/20 03/25/20 Unknown Rx [Macrobid CAP] Ibuprofen [Motrin 800 MG tab] 800 mg PO Q8H PRN #30 tablet 03/23/20 Unknown Rx oxyCODONE /ACETAMINOPHEN [Percocet 1 tab PO Q6H PRN #30 tablet 03/23/20 Unknown Rx 5/325 mg] Ibuprofen [Motrin] 800 mg PO Q8HR PRN #30 tablet 05/29/21 Unknown Rx traMADoL [Ultram] 50 mg PO Q6HR PRN #12 tablet 05/29/21 Unknown Rx Acetaminophen [Tylenol] 500 mg PO Q6HR PRN #40 tablet 10/03/21 Unknown Rx cephALEXin [Keflex] 500 mg PO Q8HR #30 cap 10/03/21 Unknown Rx Active Meds: Active Medications Citric Acid/Sodium Citrate (Bicitra Oral Liqd 30ml) 30 ml PO ONCE ONE Stop: 02/12/22 06:30 Famotidine (Famotidine 20 Mg/2 Ml Inj) 20 mg IV ONCE ONE Stop: 02/12/22 06:30 Lactated Ringer's (Lactated Ringers) 1,000 mls @ 2,250 mls/hr IV PREOP MARSHALL Stop: 02/13/22 05:57 Last Admin: 02/12/22 05:42 Dose: 2,250 mls/hr Oxytocin/Sodium Chloride (Pitocin/Ns 30 Unit/500ml) 30 units in 500 mls @ 0 mls/hr IV TITR MARSHALL; Protocol Cefazolin Sodium (Ancef/Sterile Water 2 Gm/20 Ml) 2 gm in 20 mls @ 80 mls/hr IV PREOP NR; Protocol Stop: 02/12/22 23:59 Lidocaine (Lidocaine (2%) 20 Mg/1 Ml Vial 20 Ml Mdv) 20 ml INFILTRATI ONCE ONE Stop: 02/12/22 06:30 Metoclopramide HCl (Metoclopramide 10 Mg/2 Ml Inj) 10 mg IV ONCE ONE Stop: 02/12/22 06:30 Terbutaline Sulfate (Terbutaline 1 Mg/1 Ml Inj) 0.25 mg SUB-Q ONCE PRN PRN Reason: Hyperstimulation/Hypertonicity Review of Systems All systems: negative Genitourinary: contractions - Vital Signs Vital signs: Vital Signs Temp 99.3 F 02/12/22 04:36 Temp Pulse Resp BP Pulse Ox 99.3 F 90 153/69 100 02/12/22 04:36 02/12/22 06:26 02/12/22 04:42 02/12/22 06:26 - Physical Exam Lungs: Positive: Normal air movement Abdomen: Positive: normal appearance, soft, distention, normal bowel sounds Uterus: Positive: enlarged, normal contour Extremities: Deep Tendon Reflex Grade: Normal +2 - Obstetrical FHR: auscultation normal Results Result Diagrams: 02/12/22 05:15 Abnormal lab results 02/12/22 02/12/22 Range/Units 05:15 05:15 [place] % (Auto) 8.9 H (0.0-7.3) % Crossmatch See Detail All other labs normal. Assessment and Plan - Patient Problems (1) Previous section Current Visit: Yes Status: Acute (2) 40 weeks gestation of Current Visit: Yes Status: Acute (3) Postmaturity , 40-42 weeks gestation Current Visit: Yes Status: Acute (4) Active labor Current Visit: Yes Status: Acute Plan to address problem: For repeat patrick.
[2022-02-12] MEDS ORDERED: ONDANSETRON 4 MG/2 ML INJ ONE (06:56)
[2022-02-12] MEDS ORDERED: ePHEDrine SULFATE 50 MG/1 ML INJ ONE (06:56)
[2022-02-12] MEDS ORDERED: PHENYLEPHRINE/NS 1,000 MCG/10 ML SYRINGE (OR USE) IV ONE (06:56)
[2022-02-12] MEDS ORDERED: SODIUM CHLORIDE 0.9% 100 ML ONE (06:56)
[2022-02-12] MEDS ORDERED: BUPIVACAINE/PF (0.5%) 5 MG/1 ML 30 ML VIAL INFILTRATI ONE (06:56)
[2022-02-12] MEDS ORDERED: KETOROLAC 30 MG/1 ML INJ IV PRN ×2 (08:44)
--- NOTE | 2022-02-12 08:53 | Operative Report ---
Operative Report Operative Report: Date of surgery: February 12, 2022 Preoperative diagnoses: 40 weeks and 4 days gestation, previous , active labor, peritoneal adhesions Postoperative diagnoses: The same. Operation: Lower segment transverse delivery, lysis of adhesions. Surgeon:Stephanie Flores MD Freight Agent: Herb Arndt CRNA Anesthesia: Spinal block Estimated blood loss: 300 mL Complications: None Findings: Live baby girl, vertex, nuchal cord, weight 7 pounds, Apgars 8/9. The ovaries, fallopian tubes and the uterus were grossly normal. Filmy bands of adhesions were noted in the anterior cul-de-sac and were divided. Procedure in detail: The patient was taken to the operating room and given a spinal block. Patient was placed in the straight supine position and a Neri catheter was inserted. The patient was prepped in the abdomen. The drapes were placed. A timeout was done. With the go ahead from the dog breeder, a Pfannenstiel incision was made. This incision was carried across the subcutaneous layer to the fascia which was also divided transversely. The recti abdominis muscle flaps were stripped from the fascia using a combination of blunt and sharp dissections. The muscles were in the midline to gain access to the anterior parietal peritoneum which was divided after excluding any underlying viscera. The access to the peritoneal cavity was then widened by manual stretching. The bladder blade was applied. The utero vesicle peritoneal flap was divided transversely allowing the bladder to be displaced caudally. The uterine incision was placed in the lower segment transversely. The uterine incision was carried to the decidual layer. The uterine incision was extended on both sides using the bandage scissors. The amniotic sac was ruptured with clear fluid. The head was lifted out of the false maternal pelvis and delivered through the incision using fundal pressure. The airways were bulb suctioned beginning with the mouth. Continuing fundal pressure combined with traction on the mandibular processes of the jaw delivered the rest of the baby. The umbilical cord was double clamped and divided. The baby was carefully transferred to the pediatric team. The placenta was manually removed from the uterine cavity. The uterine cavity was explored and was empty of any placental remnants. The uterine incision was repaired in 2 layers with #1 Vicryl. The filmy bands of adhesions noted within the lower pelvis were divided using the cautery. The surgical line on the uterus was hemostatic. Blood and clots were cleared from the peritoneal cavity. The anterior parietal peritoneum was repaired with #1 Vicryl. The fascia was repaired with #1 Vicryl. The subcutaneous layer was made hemostatic using the Bovie before the skin was closed subcuticularly with 4-0 Vicryl. There were no complications. The estimated blood loss was 300 mL. All sponges and instrument counts were correct. Patient was safely transferred to the recovery room.
[2022-02-12] MEDS ORDERED: ONDANSETRON 4 MG/2 ML INJ IV PRN ×2 (09:28→10:00)
[2022-02-12] MEDS ORDERED: PROMETHAZINE 25 MG RECT SUPP PR PRN ×2 (09:28→10:00)
--- NOTE | 2022-02-12 09:31 | Anesthesia Consultation ---
Anesthesia Consult and Med Hx Date of service: 02/12/22 - Airway Anesthetic Teeth Evaluation: Good ROM Head & Neck: Adequate Mental/Hyoid Distance: Adequate Mallampati Class: Class II Intubation Access Assessment: Probably Good - Pulmonary Exam CTA: Yes - Cardiac Exam Cardiac Exam: RRR - Pre-Operative Health Status ASA Pre-Surgery Classification: ASA2 Proposed Anesthetic Plan: Spinal Nerve Block: Luciano Tap - Pulmonary Hx Smoking: No Hx Asthma: Yes (last attack as a child) Hx Respiratory Symptoms: No SOB: No COPD: No Home Oxygen Therapy: No Hx Pneumonia: No Hx Sleep Apnea: No - Cardiovascular System Hx Hypertension: No Hx Coronary Artery Disease: No Hx Heart Attack/AMI: No Hx Angina: No Hx Percutaneous Transluminal Coronary Angioplasty (PTCA): No Hx Cardia Arrhythmia: No Hx Pacemaker: No Hx Internal Defibrillator: No Hx Valvular Heart Disease: No Hx Heart Murmur: No Hx Peripheral Vascular Disease: No - Central Nervous System Hx Neuromuscular Disorder: No Hx Seizures: No CVA: No Hx Back Pain: No Hx Psychiatric Problems: No - Gastrointestinal Hx Ulcer: No Hx Gastroesophageal Reflux Disease: No - Endocrine Hx Renal Disease: No Hx End Stage Renal Disease: No Hx Cirrhosis: No Hx Liver Disease: No Hx Insulin Dependent Diabetes: No Hx Non-Insulin Dependent Diabetes: No Hx Thyroid Disease: No Hx Hypothyroidism: No Hx Hyperthyroidism: No - Hematic Hx Anemia: No Hx Sickle Cell Disease: No - Other Systems Hx Alcohol Use: No Hx Substance Use: No Hx Cancer: No Hx Obesity: Yes
--- NOTE | 2022-02-12 09:33 | Anesthesia Day of Surgery ---
Anesthesia Day of Surgery - Day of Surgery Patient Examined: Yes Patient H&P Reviewed: Yes Patient is NPO: Yes Beta Blockers: No Cardiac Clearance: No Pulmonary Clearance: No Logan's Test: N/A
--- NOTE | 2022-02-12 09:33 | Progress Note ---
Spinal Anesthesia Block - Spinal Anesthesia Block Start Time: 07:30 Stop Time: 07:40 Performed by:: SONIA BOLAÑOS Procedure: The patient was placed in a sitting position on the OR table and monitors applied. A timeout was performed immediately prior to the start of the procedure. The patient was Prepped and draped in a sterile fashion and the skin was localized with 3 mL 1% lidocaine at L[4]-L[5] interspace. An introducer was placed into the back between L4-L5 and a 25g spinal needle was advanced into the intrathecal space until clear, free flowing CSF was observed. 1.8cc of 0.75% hyperbaric bupivacaine + 0.5mcg Precedex was injected into the intrathecal space and the spinal needle was removed. The patient tolerated the procedure well and there were no immediate complications noted.
--- NOTE | 2022-02-12 09:34 | Progress Note ---
Regional Anesthesia Block - Regional Anesthesia Block Start Time: :05 Stop Time: :12 Performed By:: SONIA BOLAÑOS Procedure: During the pre-op interview the patient agreed to and signed a consent for a TAP block for post surgical pain management. After her C/S was completed a time out was performed prior to the start of the procedure. The Trans Abdominal Plane was identified bilaterally via ultrasound. The skin was prepped bilaterally with chlorhexidine and a 22g stimuplex needle was advanced to the area between the internal oblique muscle and the trans abdominal plane. Marcaine 0.25% 30mlwas injected under ultrasound guidance on the left and right side. Negative aspiration every 5mL, There was no change in the patients heart rate or rhythm and the patient tolerated the procedure well. No apparent complications were observed.
[2022-02-12] MEDS ORDERED: WITCH HAZEL/ GLYCERIN PAD TP PRN (10:00)
[2022-02-12] MEDS ORDERED: SIMETHICONE 80 MG CHEW TAB PO PRN (10:00)
[2022-02-12] MEDS ORDERED: NALOXONE 0.4 MG/1 ML INJ IV PRN ×2 (10:00)
[2022-02-12] MEDS ORDERED: LANOLIN/ZINC/DIMETHICONE (LANSINOH) 7 GM TP PRN (10:00)
[2022-02-12] MEDS ORDERED: PROMETHAZINE 25 MG TAB PO PRN (10:00)
[2022-02-12] MEDS ORDERED: IBUPROFEN 600 MG TAB PO PRN (11:00)
[2022-02-12] MEDS ORDERED: MORPHINE 2 MG/1 ML INJ IV PRN (11:00)
[2022-02-12] MEDS ORDERED: MORPHINE 4 MG/1 ML INJ IV PRN ×2 (11:00)
[2022-02-12] MEDS ORDERED: HYDROmorphone 1 MG/1 ML INJ IV PRN (11:00)
[2022-02-12] MEDS: HYDROmorphone 1 MG/1 ML INJ IV PRN ×2 (11:42→16:21)
[2022-02-12] MEDS: LACTATED RINGERS 1,000 ML IV SCH ×2 (13:33→20:19)
[2022-02-12] MEDS: PRENATAL VIT27-FE FUMARATE-FOLIC ACID VIT TAB PO SCH (19:00)
[2022-02-12] MEDS: HYDROcodone/ACETAMINOPHEN 5-325 MG TAB PO PRN (20:16)
[2022-02-12 21:17] LABS: Hematocrit 34.1 % (30.3-42.9); Hemoglobin 10.7 gm/dl (10.1-14.3); Mean Corpuscular HGB Conc 31 % (30-34); Mean Corpuscular Volume 88 fl (79-97); Platelet Count 197 K/mm3 (140-440); Red Blood Count 3.86 M/mm3 (3.65-5.03); Red Cell Distribution Width 14.2 % (13.2-15.2)
[2022-02-12] MEDS ORDERED: SENNOSIDES 8.6 MG TAB PO PRN (22:00)
[2022-02-12] MEDS ORDERED: MAGNESIUM HYDROXIDE (MOM) ORAL LIQD UDC PO PRN (22:00)
[2022-02-13] MEDS: HYDROcodone/ACETAMINOPHEN 5-325 MG TAB PO PRN ×3 (08:25→21:10)
--- NOTE | 2022-02-13 08:46 | Progress Note ---
Assessment and Plan A: POD # 1 - stable P: Continue post op care Subjective - Subjective Date of service: 02/13/22 Principal diagnosis: REpeat - POD # 1 -stable Patient reports: appetite normal [place]: doing well Objective - Vital Signs Latest vital signs: Vital Signs Temp Pulse Resp BP BP Pulse Ox Pulse Ox 02/13/22 06:05 98 02/13/22 05:10 97.9 F 59 L 20 115/47 98 02/13/22 04:25 98 02/13/22 02:15 98 02/13/22 00:22 98.1 F 65 20 129/75 97 02/12/22 23:50 98 02/12/22 22:40 140/59 02/12/22 21:10 98 02/12/22 20:10 98.1 F 64 18 153/73 98 98 02/12/22 16:21 16 02/12/22 15:24 97.8 F 61 18 138/64 99 02/12/22 10:20 97.6 F 68 20 143/51 99 02/12/22 09:53 97.7 F 02/12/22 09:50 73 16 129/58 100 02/12/22 09:35 72 16 132/60 99 02/12/22 09:20 60 12 141/63 99 02/12/22 09:05 57 L 15 135/86 100 02/12/22 09:02 77 16 143/47 100 02/12/22 08:55 65 18 121/55 100 02/12/22 08:53 97.5 F L 65 18 118/52 100 Intake and Output 02/12/22 02/13/22 02/13/22 22:59 06:59 14:59 Intake Total 1205.833 120 Output Total 3400 600 Balance -0054.167 480 Intake: IV 845.833 Lactated Ringers 1,000 ml 845.833 @ 125 mls/hr IV DIRECT MARSHALL Rx#:[id number] Oral 360 Intake, Free Water 120 Output: Urine 3400 600 Indwelling Catheter 2500 Uretheral (Neri) 900 Void 600 Other: Total, Intake Amount 360 Total, Output Amount 900 600 # Voids Void 1 - Exam Breasts: Present: deferred Cardiovascular: Present: Regular rate Lungs: Present: Clear to auscultation Abdomen: Present: soft Vulva: both: normal Deep Tendon Reflex Grade: Normal +2 Incision: Present: dressed - Labs Labs: Abnormal lab results 02/12/22 Range/Units 20:45 WBC 11.1 H (4.5-11.0) K/mm3
--- NOTE | 2022-02-13 10:10 | Post Anesthesia Evaluation ---
- Post Anesthesia Evaluation Patient Participated: Yes Airway Patent: Yes Stable Respiratory Function: Yes Nausea/Vomiting: No Temp > 96.8F: Yes Pain Manageable: Yes Adequeate Hydration: Yes Anesthesia Complications: No Block Receding Appropriately: Yes Patient on Ventilator: No
[2022-02-13] MEDS: PRENATAL VIT27-FE FUMARATE-FOLIC ACID VIT TAB PO SCH (10:27)
[2022-02-13] MEDS ORDERED: metroNIDAZOLE 500 MG TAB PO NR (11:00)
[2022-02-13] MEDS: IBUPROFEN 800 MG TAB PO PRN (18:10)
[2022-02-14] MEDS: IBUPROFEN 800 MG TAB PO PRN ×3 (02:04→15:38)
--- NOTE | 2022-02-14 08:38 | Progress Note ---
Assessment and Plan A: POD # 2 - stable P: Discharge home in am Discharge instructions given Subjective - Subjective Date of service: 02/14/22 Principal diagnosis: REpeat - POD # 2 -stable Patient reports: appetite normal : doing well Objective - Vital Signs Latest vital signs: Vital Signs Temp Pulse Resp BP BP Pulse Ox Pulse Ox 02/14/22 08:24 98 02/14/22 02:04 20 02/14/22 00:23 98.1 F 60 20 113/47 100 02/13/22 21:10 20 02/13/22 19:35 98 02/13/22 17:10 97.5 F L 73 18 134/73 96 Intake and Output 02/13/22 02/14/22 02/14/22 22:59 06:59 14:59 Intake Total 680 240 Balance 680 240 Intake: Oral 320 240 Intake, Free Water 360 Other: Total, Intake Amount 320 240 # Voids Void 1 1 - Exam Breasts: Present: deferred Cardiovascular: Present: Regular rate Lungs: Present: Clear to auscultation Abdomen: Present: soft Vulva: both: normal Uterus: Present: fundal height below umbilicus Deep Tendon Reflex Grade: Normal +2 Incision: Present: dressed (will remove in the shower)
--- NOTE | 2022-02-14 08:38 | Discharge Summary ---
Providers - Providers Date of Admission: 02/12/22 06:30 Date of discharge: 02/15/22 Attending physician: NEGRITA KYLE MD Primary care physician: NEGRITA KYLE MD Hospitalization Reason for admission: section Delivery: Procedure: section Incision: dressed complications: none Discharge diagnosis: IUP at term delivered baby: female Hospital course: uneventful hospital course Condition at discharge: Good Disposition: 01 HOME / SELF CARE / HOMELESS Plan - Provider Discharge Summary Activity: routine, no sex for 6 weeks, no strenuous exercise Diet: routine Instructions: routine Additional instructions: [] Smoking cessation referral if applicable(refer to patient education folder for contact #) [] Refer to [facility] Booklet Call your doctor immediately for: * Fever > 100.5 * Heavy vaginal bleeding ( >1 pad per hour) * Severe persistent headache * Shortness of breath * Reddened, hot, painful area to leg or breast * Drainage or odor from incision. * Keep incision clean and dry at all times and follow doctor's instructions regarding bathing/showering - Follow up plan Follow up: NEGRITA KYLE MD [Primary Care Provider] - 14 Days
[2022-02-14] MEDS: PRENATAL VIT27-FE FUMARATE-FOLIC ACID VIT TAB PO SCH (09:47)
[2022-02-14] MEDS: HYDROcodone/ACETAMINOPHEN 5-325 MG TAB PO PRN (20:48)
[2022-02-15] MEDS: IBUPROFEN 800 MG TAB PO PRN (05:14)
[2022-02-15] MEDS: PRENATAL VIT27-FE FUMARATE-FOLIC ACID VIT TAB PO SCH (10:01)
[2022-02-15 12:45] VITALS: BP 135/63
== END 2022-02-15 14:30 | disposition home or self-care (01) | DRG 766 ==
LOC: TRG 04:20 → APU 04:21 → LD 05:56 → TRG 06:29 → LD 06:30 → OB 11:06
PROVIDERS: ADMIT Obstetrics & Gynecology Gynecology; ATTEND Obstetrics & Gynecology Gynecology
PROC: 10D00Z1 Extraction of Products of Conception, Low, Open Approach (ICD-10-PCS; principal; 2022-02-12)
PROC: 3E0T3BZ Introduction of Anesthetic Agent into Peripheral Nerves and Plexi, Percutaneous Approach (ICD-10-PCS; 2022-02-12)
DX: O34.211 Maternal care for low transverse scar from previous cesarean delivery (principal); O99.214 Obesity complicating childbirth; O48.0 Post-term pregnancy; Z37.0 Single live birth; Z3A.40 40 weeks gestation of pregnancy; Z20.822 Contact with and (suspected) exposure to COVID-19; O99.62 Diseases of the digestive system complicating childbirth; K66.0 Peritoneal adhesions (postprocedural) (postinfection); O99.824 Streptococcus B carrier state complicating childbirth
CPT/HCPCS: 36415; 85025; 85027; 86592; 86850; 86900; 86901; 86920; G0378; J3490; J7121; J1170; J1885; J2270; J2370; J2405; J2765; J7120; U0003